=== PATIENT | female | born 1945 | race Hispanic/Latino ===

== ENCOUNTER 2019-06-27 08:34 | Emergency (ER) | payer MEDICARE, OTHER ==
[~2019-06-27] VITALS: Ht 154.9 cm; Wt 73.9 kg
--- OUTSIDE RECORDS SUMMARY | 2019-06-27 08:37 | XMS REPORT | Clinical Summary ---
Author Author [facility] Organization [facility] Address Unknown Phone Unavailable Care Team Providers Care Medicaid Analyst Name Role Phone Stacy Lucero MD PCP Allergies Comments Active Allergy Reactions Severity Noted Date headaches Amlodipine 02/05/2019 Myalgias Rosuvastatin Other (See 01/13/2017 Comments) dysuria Fenofibrate 01/28/2019 Muscle pains Gemfibrozil 02/18/2019 Myalgias Atorvastatin Other (See 01/13/2017 Comments) Methylprednisolone 12/08/2017 Morphine Anaphylaxis High 04/11/2016 Burning eyes Nifedipine 02/18/2019 Medications End Date Status Medication Sig Dispensed Refills Start Date Active MICROLET LANCET misc CHEQUE MCNEAL 100 each 3 AZUCAR DOS 6 VECES AL VLADIMIR. Active cholecalciferol, vitamin Take 1 tablet 4 tablet 6 D3, 50,000 unit tablet (50,000 Units 8 total) by mouth once a week. Active mirabegron (MYRBETIQ) 50 Take 1 tablet 30 tablet 0 mg tablet extended (50 mg total) 8 release 24 hrIndications: by mouth Dysuria, Urinary urgency daily. Active olmesartan-hydrochlorothi TOME CLAIRE (1) 90 tablet 1 azide (BENICAR HCT) 40-25 TABLETA(S) 9 mg per tablet POR LA BOCA CLAIRE VEZ AL VLADIMIR. Active colesevelam (WELCHOL) 625 Take 3 180 tablet 5 mg tablet tablets 9 (1,875 mg total) by mouth 2 (two) times a day with meals. Active conjugated estrogens Apply a 30 g 1 (PREMARIN) 0.625 mg/gram blueberry 9 vaginal cream size amount to the external vagina 2x per week before bed Active metFORMIN XR TOME CLAIRE (1) 90 tablet 0 (GLUCOPHAGE-XR) 500 mg 24 TABLETA(S) 9 hr tabletIndications: POR LA BOCA Type 2 diabetes mellitus DIARIO CON without complication, DESAYUNO. without long-term current use of insulin ([facility]) 08/02/2019 Active ALPRAZolam (XANAX) 0.5 MG TOME CLAIRE (1) 30 tablet 0 tablet TABLETA(S) 9 POR LA BOCA CADA NOCHE GAVIOTA NECESARIO PARA ANSIEDAD. 07/26/2018 Discontinued (Reorder) olmesartan-hydrochlorothi Take 1 tablet 30 tablet 6 azide (BENICAR HCT) 40-25 by mouth 8 mg per tablet daily. 06/26/2018 Discontinued (Med List Cleanup) metFORMIN XR Take 500 mg 0 (GLUCOPHAGE-XR) 500 mg 24 by mouth hr tablet daily with breakfast. 09/29/2018 Discontinued (Reorder) metFORMIN XR TOME CLAIRE (1) 60 tablet 2 (GLUCOPHAGE-XR) 500 mg 24 TABLETA(S) 8 hr tabletIndications: POR LA BOCA Type 2 diabetes mellitus DIARIO CON EL without complication, DESAYUNO. without long-term current use of insulin ([facility]) 10/04/2018 Discontinued (Reorder) ALPRAZolam (XANAX) 0.5 MG Take 0.5 mg 0 tablet by mouth nightly as needed for anxiety. 01/28/2019 Discontinued (Side effects) fenofibrate micronized Take 1 30 capsule 6 (LOFIBRA) 134 MG capsule capsule (134 8 mg total) by mouth nightly. 07/30/2018 nitrofurantoin, Take 1 14 capsule 0 macrocrystal-monohydrate, capsule (100 8 (MACROBID) 100 MG mg total) by capsuleIndications: mouth 2 (two) Dysuria times a day for 7 days. 11/02/2018 Discontinued (Reorder) olmesartan-hydrochlorothi TOME CLAIRE (1) 30 tablet 6 azide (BENICAR HCT) 40-25 TABLETA(S) 8 mg per tablet POR LA BOCA DIARIO. 11/02/2018 Discontinued (Reorder) metFORMIN XR TOME CLAIRE (1) 30 tablet 2 12/03/201 (GLUCOPHAGE-XR) 500 mg 24 TABLETA(S) 8 hr tabletIndications: POR LA BOCA Type 2 diabetes mellitus DIARIO CON EL without complication, DESAYUNO. without long-term current use of insulin ([facility]) 10/14/2018 ciprofloxacin (CIPRO) 500 Take 1 tablet 28 tablet 0 MG tablet (500 mg 8 total) by mouth 2 (two) times a day for 14 days. 11/14/2018 Discontinued (Alternate therapy) amLODIPine (NORVASC) 5 mg Take 1 tablet 30 tablet 1 tabletIndications: (5 mg total) 8 Essential hypertension by mouth daily. 11/02/2018 Discontinued (Reorder) ALPRAZolam (XANAX) 0.5 MG TOME CLAIRE (1) 30 tablet 0 tablet TABLETA(S) 8 POR LA BOCA CLAIRE VEZ AL VLADIMIR GAVIOTA NECESARIO. 05/02/2019 Discontinued (Reorder) metFORMIN XR TOME CLAIRE (1) 90 tablet 0 (GLUCOPHAGE-XR) 500 mg 24 TABLETA(S) 9 hr tabletIndications: POR LA BOCA Type 2 diabetes mellitus DIARIO CON without complication, DESAYUNO. without long-term current use of insulin ([facility]) 01/25/2019 Discontinued (Reorder) olmesartan-hydrochlorothi TOME CLAIRE (1) 90 tablet 0 azide (BENICAR HCT) 40-25 TABLETA(S) 9 mg per tablet POR LA BOCA CLAIRE VEZ AL VLADIMIR. 11/14/2018 Discontinued (Alternate therapy) nebivolol (BYSTOLIC) 5 MG Take 1 tablet 30 tablet 1 tablet (5 mg total) 9 by mouth daily. 06/03/2019 Discontinued (Reorder) ALPRAZolam (XANAX) 0.5 MG Take 1 tablet 30 tablet 1 tablet (0.5 mg 9 total) by mouth nightly as needed for anxiety for up to 30 days. 12/21/2018 Discontinued (Reorder) bisoprolol (ZEBETA) 5 MG Take 1 tablet 30 tablet 1 tablet (5 mg total) 9 by mouth daily. 02/05/2019 Discontinued (Side effects) bisoprolol (ZEBETA) 5 MG Take 0.5 45 tablet 1 tabletIndications: tablets (2.5 9 Essential hypertension mg total) by mouth daily. 02/18/2019 Discontinued (Side effects) gemfibrozil (LOPID) 600 Take 1 tablet 180 tablet 1 MG tablet 30 minutes 9 before breakfast and dinner 02/18/2019 Discontinued (Side effects) NIFEdipine XL (PROCARDIA Take 1 tablet 30 tablet 1 XL) 30 MG 24 hr tablet (30 mg total) 9 by mouth nightly. Active Problems Problem Noted Date Spondylosis of lumbar region without myelopathy or radiculopathy 07/22/2016 Spondylosis, cervical 07/22/2016 Hypertension Hyperlipidemia Diabetes mellitus Overview: 5.0% A1C 6 months ago Cancer Overview: h/o bladder- had tumor removed- had regular f/u with for a while- none in 8-9 yrs Encounters Care Team Description Date Type Specialty Stacy Lucero MD 06/10/2019 Refill Family Medicine Stacy Lucero MD 06/05/2019 Refill Family Medicine Stacy Lucero MD 06/03/2019 Refill Family Medicine Stacy Lucero MD Type 2 diabetes mellitus without complication, without long-term current use of insulin ([facility]) 05/02/2019 Refill Internal Medicine Sudha Porter PA Gross hematuria (Primary Dx); Nocturia; Atrophic vaginitis; History of bladder cancer 02/25/2019 Office Visit Urology Stacy Lucero MD 02/14/2019 Telephone Internal Medicine Stacy Lucero MD 02/04/2019 Telephone Internal Medicine Stacy Lucero MD 01/28/2019 Orders Only Family Medicine Stacy Lucero MD Essential hypertension; Type 2 diabetes mellitus without complication, without long-term current use of insulin ([facility]); Mixed hyperlipidemia 01/25/2019 Lab Lab Stacy Lucero MD Type 2 diabetes mellitus without complication, without long-term current use of insulin ([facility]) 01/25/2019 Refill Internal Medicine Stacy Lucero MD 12/26/2018 Telephone Internal Medicine Stacy Lucero MD Essential hypertension (Primary Dx); Type 2 diabetes mellitus without complication, without long-term current use of insulin (HCC); Mixed hyperlipidemia 12/21/2018 Office Visit Family Stacy Rose MD 12/17/2018 Telephone Family Medicine Stacy Lucero MD 11/16/2018 Telephone Internal Medicine Stacy Lucero MD 11/13/2018 Telephone Internal Medicine Stacy Lucero MD Essential hypertension (Primary Dx) 11/02/2018 Office Visit Family Medicine Stacy Lucero MD Type 2 diabetes mellitus without complication, without long-term current use of insulin (HCC) 11/02/2018 Refill Internal Medicine Stacy Lucero MD Type 2 diabetes mellitus without complication, without long-term current use of insulin ([facility]) 11/01/2018 Refill Internal Medicine Stacy Lucero MD 10/26/2018 Refill Internal Medicine Stacy Lucero MD 10/12/2018 Refill Internal Medicine Allan Christine MD Gross hematuria 10/11/2018 Hospital Radiology Encounter Stacy Lucero MD Snoring (Primary Dx); Has daytime drowsiness 10/09/2018 Telephone Internal Medicine Allan Christine MD Gross hematuria (Primary Dx) 10/09/2018 Transcribe Access Orders Allan Christine MD Urinary tract infection without hematuria, site unspecified (Primary Dx); Urge incontinence; Gross hematuria; Personal history of malignant neoplasm of bladder 10/07/2018 Lab Lab Stacy Lucero MD 10/05/2018 Refill Family Medicine Stacy Lucero MD 10/04/2018 Refill Family Medicine Stacy Lucero MD Dysuria (Primary Dx); Urinary urgency; Personal history of bladder cancer; Essential hypertension 10/01/2018 Office Visit Family Medicine Yessica Mcnamara MD 10/01/2018 Telephone Urology Roxanne MckeonJerica Pizano MD Urinary tract infection with hematuria, site unspecified (Primary Dx); Gross hematuria 09/30/2018 Emergency Emergency Medicine Stacy Lucero MD Type 2 diabetes mellitus without complication, without long-term current use of insulin (HCC) 09/29/2018 Refill Family Medicine Stacy Lucero MD 09/11/2018 Telephone Family Medicine Stacy Lucero MD Urinary tract infection without hematuria, site unspecified 08/03/2018 Lab Stacy Webb MD Urinary tract infection without hematuria, site unspecified (Primary Dx) 08/01/2018 Telephone Family Stacy Rose MD 07/26/2018 Refill Family Medicine Stacy Lucero MD Dysuria (Primary Dx); Fatigue, unspecified type 07/23/2018 Office Visit Family Medicine Stacy Lucero MD 06/29/2018 Telephone Internal Medicine Stacy Lucero MD 06/27/2018 Orders Only Family Medicine Stacy Lucero MD Fatigue, unspecified type; Type 2 diabetes mellitus without complication, without long-term current use of insulin; Essential hypertension; Mixed hyperlipidemia; Vitamin D deficiency 06/26/2018 Lab Lab Stacy Lucero MD Annual visit for general adult medical examination with abnormal findings (Primary Dx); Colon cancer screening; Breast cancer screening; Age-related osteoporosis without current pathological fracture; Type 2 diabetes mellitus without complication, without long-term current use of insulin; Essential hypertension; Mixed hyperlipidemia; Fatigue, unspecified type; Primary insomnia; Vitamin D deficiency 06/26/2018 Office Visit Family Medicine after 06/26/2018 Immunizations Name Administration Dates Next Due FLUZONE HIGH-DOSE PF 07/15/2016 Pneumococcal Conjugate 07/15/2016 13-Valent Pneumococcal 10/30/2012 Polysaccharide Family History Medical History Relation Name Comments Cancer Father throat- heavy smoker Hypertension Mother Relation Name Status Comments Father Mother Alive Social History Date Tobacco Use Types Packs/Day Years Used Former Smoker Cigarettes 5 Smokeless Tobacco: Never Used Tobacco Cessation: Counseling Given: No Drinks/Week oz/Week Comments Alcohol Use No Sex Assigned at Date Recorded Not on file Industry Job Start Date Occupation Not on file Not on file Not on file Travel End Travel History Travel Start No recent travel history available. Last Filed Vital Signs Reading Time Taken Comments Vital Sign 144/73 02/25/2019 9:53 AM CDT Blood Pressure 66 02/25/2019 9:53 AM CDT Pulse 36.9 C (98.4 F) 12/21/2018 2:58 PM [facility]URSE [facility]ACTITIONER H[facility]PITALIST Temperature 17 09/30/2018 1:56 PM [facility]URSE PRACTITIONER H[facility]PITALIST Respiratory Rate 99% 12/21/2018 2:58 PM NURSE PRACTITIONER HOSPITALIST Oxygen Saturation - - Inhaled Oxygen Concentration 75.3 kg (166 lb) 02/25/2019 9:53 AM CDT Weight 154.9 cm (5' 1") 02/25/2019 9:53 AM CDT Height 31.37 02/25/2019 9:53 AM CDT Body Mass Index Plan of Treatment Care Team Description Date Type Specialty Stacy Lucero MD [address] [place] [address] [phone] 07/08/2019 Office Visit Family Medicine Health Maintenance Due Date Last Done Comments DIABETIC FOOT EXAM 1957 BREAST CANCER SCREENING 1997 SHINGLES VACCINES (#1) 1997 INFLUENZA VACCINE 05/30/2019 07/15/2016 DIABETIC RETINAL EYE EXAM 12/21/2020 12/21/2018, 12/20/2017, 03/20/2017, Additional history exists COLONOSCOPY SCREENING 10/30/2022 10/30/2012 65+ PNEUMOCOCCAL VACCINE Completed 07/15/2016, 10/30/2012 Procedures Comments Procedure Name Priority Date/Time Associated Diagnosis URINE CULTURE Routine 02/25/2019 Gross hematuria 10:40 AM CDT POC URINALYSIS DIPSTICK Routine 02/25/2019 Gross hematuria 9:50 AM CDT LIPID PANEL Routine 01/25/2019 Mixed hyperlipidemia 11:16 AM CDT HEMOGLOBIN A1C Routine 01/25/2019 Type 2 diabetes mellitus 11:16 AM CDT without complication, without long-term current use of insulin (HCC) BASIC METABOLIC PANEL Routine 01/25/2019 Essential hypertension 11:16 AM CDT Type 2 diabetes mellitus without complication, without long-term current use of insulin (HCC) DIABETIC RETINAL SCAN Routine 12/21/2018 Type 2 diabetes mellitus 3:36 PM NURSE PRACTITIONER HOSPITALIST without complication, without long-term current use of insulin (HCC) CT UROGRAM Routine 10/11/2018 Gross hematuria 3:37 PM NURSE PRACTITIONER HOSPITALIST ESTIMATED GFR Routine 10/05/2018 4:11 PM NURSE PRACTITIONER HOSPITALIST CREATININE LEVEL Routine 10/05/2018 Urinary tract infection 4:11 PM NURSE PRACTITIONER HOSPITALIST without hematuria, site unspecified Urge incontinence Gross hematuria Personal history of malignant neoplasm of bladder ESTIMATED GFR STAT 09/30/2018 11:25 AM NURSE PRACTITIONER HOSPITALIST COMPREHENSIVE METABOLIC STAT 09/30/2018 PANEL 11:25 AM NURSE PRACTITIONER HOSPITALIST URINALYSIS SCREEN AND STAT 09/30/2018 MICROSCOPY, WITH REFLEX 11:25 AM NURSE PRACTITIONER HOSPITALIST TO CULTURE PARTIAL THROMBOPLASTIN STAT 09/30/2018 TIME (PTT) 11:25 AM NURSE PRACTITIONER HOSPITALIST PROTHROMBIN TIME WITH INR STAT 09/30/2018 11:25 AM NURSE PRACTITIONER HOSPITALIST HC COMPLETE BLD COUNT STAT 09/30/2018 W/AUTO DIFF 11:25 AM NURSE PRACTITIONER HOSPITALIST GRAM STAIN STAT 09/30/2018 11:25 AM NURSE PRACTITIONER HOSPITALIST URINE CULTURE STAT 09/30/2018 11:25 AM NURSE PRACTITIONER HOSPITALIST MICROSCOPIC EXAMINATION Routine 08/03/2018 9:45 AM CDT URINALYSIS, AUTOMATED Routine 08/03/2018 WITH MICROSCOPY 9:45 AM CDT URINE CULTURE Routine 08/03/2018 Urinary tract infection 9:45 AM CDT without hematuria, site unspecified MICROSCOPIC EXAMINATION Routine 07/23/2018 2:43 PM CDT URINALYSIS, AUTOMATED Routine 07/23/2018 Dysuria WITH MICROSCOPY 2:43 PM CDT URINE CULTURE Routine 07/23/2018 2:43 PM CDT POC URINALYSIS DIPSTICK Routine 07/23/2018 Dysuria 2:41 PM CDT BONE DENSITY Routine 06/26/2018 Age-related osteoporosis 11:50 AM CDT without current pathological fracture MICROSCOPIC EXAMINATION Routine 06/26/2018 10:36 AM CDT THYROID STIMULATING Routine 06/26/2018 Fatigue, unspecified type HORMONE 10:36 AM CDT HEMOGLOBIN A1C Routine 06/26/2018 Type 2 diabetes mellitus 10:36 AM CDT without complication, without long-term current use of insulin VITAMIN D 25 HYDROXY Routine 06/26/2018 Vitamin D deficiency LEVEL 10:36 AM CDT URINALYSIS, AUTOMATED Routine 06/26/2018 Type 2 diabetes mellitus WITH MICROSCOPY 10:36 AM CDT without complication, without long-term current use of insulin LIPID PANEL Routine 06/26/2018 Mixed hyperlipidemia 10:36 AM CDT COMPREHENSIVE METABOLIC Routine 06/26/2018 Type 2 diabetes mellitus PANEL 10:36 AM CDT without complication, without long-term current use of insulin Essential hypertension Mixed hyperlipidemia CBC WITH PLATELET AND Routine 06/26/2018 Fatigue, unspecified type DIFFERENTIAL 10:36 AM CDT ECG 12-LEAD Routine 06/26/2018 Essential hypertension 9:02 AM CDT after 06/26/2018 Results * Urine culture (02/25/2019 10:40 AM CDT) Only the most recent of 4 results within the time period is included. Urine culture SEE NOTE [facility] Comment: DIAGNOSTICS CULTURE, URINE, ROUTINE [place] MICRO NUMBER:[id number] TEST STATUS: FINAL SPECIMEN SOURCE: URINE SPECIMEN QUALITY:ADEQUATE RESULT: Multiple organisms present, each less than 10,000 CFU/mL. These organisms, commonly found on external and internal genitalia, are considered to be colonizers. No further testing performed. Specimen Urine Resulting Agency Comment Performing Organization Information: Site ID: [id number] Name: [facility] Address: [address] [place] [phone] Director: Joyce Santizo Performing Organization Address City/State/Zipcode Phone Number [employer] [facility] [address] [place], [place] [id number] * POC urinalysis dipstick (02/25/2019 9:50 AM CDT) Only the most recent of 2 results within the time period is included. Pathologist [facility] Color urine, Yellow POC Clarity urine, Clear POC Glucose urine, Negative Negative POC Bilirubin Negative Negative urine, POC Ketones urine, Negative Negative POC Specific 1.025 1.005 - 1.030 gravity urine, POC Blood urine, Trace (A) Negative POC pH urine, POC 5.5 5.0, 5.5, 6.0, 6.5, 7.0, 7.5, 8.0, 8.5 Protein urine, Negative Negative POC Urobilinogen <2.0 <2.0 urine, POC Nitrite urine, Negative Negative POC Leukocyte Negative Negative esterase urine, POC Specimen Urine * Hemoglobin A1c (01/25/2019 11:16 AM CDT) Only the most recent of 2 results within the time period is included. [facility] Hemoglobin A1C 6.2 (H) <5.7 % of total Hgb [facility] Comment: DIAGNOSTICS For someone without known [place] diabetes, a hemoglobin A1c value between 5.7% and 6.4% is consistent with prediabetes and should be confirmed with a follow-up test. For someone with known diabetes, a value <7% indicates that their diabetes is well controlled. A1c targets should be individualized based on duration of diabetes, age, comorbid conditions, and other considerations. This assay result is consistent with an increased risk of diabetes. Currently, no consensus exists regarding use of hemoglobin A1c for diagnosis of diabetes for children. Specimen Blood Resulting Agency Comment Performing Organization Information: Site ID: [id number] Name: [facility] Address: [address] [place] [phone] Director: Joyce Santizo Performing Organization Address City/State/Zipcode Phone Number [employer] [address] [address] * Lipid panel (01/25/2019 11:16 AM CDT) Only the most recent of 2 results within the time period is included. [facility] Cholesterol, 197 <200 mg/dL [facility] [employer] [place] HDL cholesterol 40 (L) >50 mg/dL [facility] [employer] [place] Triglycerides 358 (H) <150 mg/dL [facility] [place] LDL cholesterol 109 (H) mg/dL (calc) [facility] calculated Comment: DIAGNOSTICS Reference range: <100 [place] [facility] Desirable range <100 mg/dL for primary prevention; <70 mg/dL for patients with CHD or diabetic patients with > or=2 CHD risk factors. LDL-C is now calculated using the Amy calculation, which is a validated novel method providing better accuracy than the Friedewald equation in the estimation of LDL-C. Julio THOMPSON et al. YECENIA. 2013;310(19): 9735-0084 (http://education.[employer]/faq/WGK170) Cholesterol/HDL 4.9 <5.0 (calc) [facility] [place] Non-HDL 157 (H) <130 mg/dL (calc) [facility] cholesterol Comment: DIAGNOSTICS For patients with diabetes [place] plus 1 major ASCVD risk factor, treating to a non-HDL-C goal of <100 mg/dL (LDL-C of <70 mg/dL) is considered a therapeutic option. Specimen Blood Resulting Agency Comment Performing Organization Information: Site ID: [id number] Name: [facility] Address: [address] [place] [phone] Director: Joyce Santizo Performing Organization Address City/State/Zipcode Phone Number [facility] [employer] [address] * Basic metabolic panel (01/25/2019 11:16 AM CDT) [facility] Glucose 107 (H) 65 - 99 mg/dL [facility] Comment: DIAGNOSTICS Fasting [place] reference interval For someone without known diabetes, a glucose value between 100 and 125 mg/dL is consistent with prediabetes and should be confirmed with a follow-up test. BUN, whole 21 7 - 25 mg/dL [facility] blood [facility] [place] Creatinine 0.75 0.60 - 0.93 mg/dL [facility] Comment: DIAGNOSTICS For patients >49 years of age, [place] the reference limit for Creatinine is approximately 13% higher for people identified as -Bhutanese. EGFR Non-Afr. 80 > OR=60 [facility] [place] mL/min/1.73m2 DIAGNOSTICS [place] EGFR 92 > OR=60 [facility] [place] mL/min/1.73m2 [facility] BUN/creatinine NOT APPLICABLE 6 - 22 (calc) [facility] [place] Sodium 138 135 - 146 mmol/L [facility] [place] Potassium 4.1 3.5 - 5.3 mmol/L [facility] [place] Chloride 104 98 - 110 mmol/L [facility] [place] CO2 27 20 - 32 mmol/L [facility] [place] Calcium 9.5 8.6 - 10.4 mg/dL [facility] [place] Specimen Blood Resulting Agency Comment Performing Organization Information: Site ID: [id number] Name: [facility] Address: [address] [place] [phone] Director: Joyce Santizo Performing Organization Address City/State/Zipcode Phone Number [employer] [place] [address] [place] [address] * Diabetic Retinal Scan (12/21/2018 3:36 PM NURSE PRACTITIONER HOSPITALIST) Highest NORMAL [facility] observation value Right eye None [facility] diabetic retinopathy Iris right eye None [facility] macular edema Right eye other None [facility] retinopathy Right eye image Gradable Image [facility] quality Left eye None [facility] diabetic retinopathy Left eye None [facility] macular edema Left eye other None [facility] retinopathy Left eye image Gradable Image [facility] quality Specimen Narrative Performed At Retinal Study Result for MICHAEL ANNIE H IRIS ANNIE RODRIGUEZ a 73 y/o, F (: 1945, ) presented to [facility] on 12-21-2018 for a retinal imaging study of the left and right eyes. Based on the findings of the study, the following is recommended for ANNIE RODRIGUEZ No Visible Diabetic Retinopathy, Macular Edema or Other Condition: Please advise the patient to return for another dilated fundus exam in 12 months or the next calendar year. Interpreting Provider's Comments:No comments provided Right Eye Findings: Normal Result.Negative for Diabetic Retinopathy. Left Eye Findings: Normal Result.Negative for Diabetic Retinopathy. This result was electronically signed by Mateusz Lindquist MD, , Taxonomy: [id number] on 12-21-2018 09:56:50 [facility] time. NOTE:Any pathology noted on this diabetic retinal evaluation should be confirmed by an appropriate ophthalmic examination. Procedure Note Hm Interface, Ancillary Results Incoming - 12/21/2018 3:57 PM NURSE PRACTITIONER HOSPITALIST Retinal Study Result for ANNIE RODRIGUEZ MARIA, a 73 y/o, F (: 1945, ) presented to [facility] on 12-21-2018 for a retinal imaging study of the left and right eyes. Based on the findings of the study, the following is recommended for ANNIE RODRIGUEZ No Visible Diabetic Retinopathy, Macular Edema or Other Condition: Please advise the patient to return for another dilated fundus exam in 12 months or the next calendar year. Interpreting Provider's Comments: No comments provided Right Eye Findings: Normal Result. Negative for Diabetic Retinopathy. Left Eye Findings: Normal Result. Negative for Diabetic Retinopathy. This result was electronically signed by Mateusz Lindquist MD, , Taxonomy: [id number] on 12-21-2018 09:56:50 [facility] time. NOTE: Any pathology noted on this diabetic retinal evaluation should be confirmed by an appropriate ophthalmic examination. Performing Organization Address City/State/Zipcode Phone Number [facility] [address] [place] [address] * CT Urogram (10/11/2018 3:37 PM NURSE PRACTITIONER HOSPITALIST) Specimen Narrative Performed At EXAMINATION:CT UROGRAM RADIANT CLINICAL HISTORY:R31.0 Gross hematuria, GROSS HEMATURIA R31.0 TECHNIQUE:CT of the abdomen and pelvis was performed without contrast utilizing renal stone protocol. Subsequently, postcontrast CT of the abdomen and pelvis was obtained with multiphase renal mass and CT urogram protocol. CT images were obtained using low-dose technique with automated exposure control.Sagittal and coronal computerized reformatted images were also obtained. COMPARISON:None. IMPRESSION: 1.There are no renal, ureteral or bladder calculi. Postcontrast, there is normal symmetric enhancement of the kidneys. There is a 1.1 cm cyst in the upper pole of the right kidney and 0.8 cm cyst in the lower pole of the right kidney. There is no suspicious renal mass. Both collecting system and opacified portions of the ureters are within normal limits. There is low insertion of the left ureter. No bladder mass or wall thickening noted. 2.There is moderate diffuse fatty infiltration of the liver. Spleen, pancreas, gallbladder, adrenal glands are unremarkable. 3.Aorta is atherosclerotic. There is no abdominal or pelvic adenopathy. There is no ascites. 4.There is a small hiatal hernia. There is no intestinal obstruction. There are several diverticula in the sigmoid colon. There is no evidence of diverticulitis. 5.Status post hysterectomy. There are no adnexal masses. 6.Bones are demineralized with degenerative changes in the spine. Lung bases are clear. Summary: No CT evidence of renal stone disease or urothelial neoplasm. [facility]-[id number] Procedure Note Hm Interface, Radiology Results Incoming - 10/11/2018 8:09 PM NURSE PRACTITIONER HOSPITALIST EXAMINATION: CT UROGRAM CLINICAL HISTORY: R31.0 Gross hematuria, GROSS HEMATURIA R31.0 TECHNIQUE: CT of the abdomen and pelvis was performed without contrast utilizing renal stone protocol. Subsequently, postcontrast CT of the abdomen and pelvis was obtained with multiphase renal mass and CT urogram protocol. CT images were obtained using low-dose technique with automated exposure control. Sagittal and coronal computerized reformatted images were also obtained. COMPARISON: None. IMPRESSION: 1. There are no renal, ureteral or bladder calculi. Postcontrast, there is normal symmetric enhancement of the kidneys. There is a 1.1 cm cyst in the upper pole of the right kidney and 0.8 cm cyst in the lower pole of the right kidney. There is no suspicious renal mass. Both collecting system and opacified portions of the ureters are within normal limits. There is low insertion of the left ureter. No bladder mass or wall thickening noted. 2. There is moderate diffuse fatty infiltration of the liver. Spleen, pancreas, gallbladder, adrenal glands are unremarkable. 3. Aorta is atherosclerotic. There is no abdominal or pelvic adenopathy. There is no ascites. 4. There is a small hiatal hernia. There is no intestinal obstruction. There are several diverticula in the sigmoid colon. There is no evidence of diverticulitis. 5. Status post hysterectomy. There are no adnexal masses. 6. Bones are demineralized with degenerative changes in the spine. Lung bases are clear. Summary: No CT evidence of renal stone disease or urothelial neoplasm. [facility]-[id number] Performing Organization Address City/State/Zipcode Phone Number [facility] [address] [place] [address] * Estimated GFR (10/05/2018 4:11 PM NURSE PRACTITIONER HOSPITALIST) Only the most recent of 2 results within the time period is included. Estimated GFR 69 mL/min/1.73 m2 [facility] Comment: [facility] rpretation G1 >=90 Normal or high G2 60-89Mildly decreased G1k98-93 Mildly to moderately decreased N4w84-22 Moderately to severely decreased G4 15-29Severely decreased G5 <15Kidney failure The eGFR was calculated using the Chronic Kidney Disease Epidemiology Collaboration (CKD-EPI) equation. Interpretation is based on recommendations of the National Kidney Foundation-Kidney Disease Outcomes Quality Initiative (NKF-KDOQI) published in 2014. Specimen Plasma specimen Performing Organization Address City/State/Zipcode Phone Number [facility] DEPARTMENT OF [address] [place] [address] PATHOLOGY AND GENOMIC MEDICINE [address] * Creatinine level (10/05/2018 4:11 PM NURSE PRACTITIONER HOSPITALIST) Creatinine 0.85 0.50 - 0.90 mg/dL [facility] Specimen Plasma specimen Performing Organization Address City/[facility] Phone Number [facility] [place] [address] PATHOLOGY AND GENOMIC MEDICINE [address] * Urinalysis screen and microscopy, with reflex to culture (09/30/2018 11:25 AM NURSE PRACTITIONER HOSPITALIST) Specimen site Clean catch [facility] Color, UA Straw [facility] Appearance, UA Clear [facility] Specific 1.004 1.001 - 1.035 [facility] gravity, [facility] pH, UA 6.0 5.0 - 8.5 [facility] Protein, UA Negative Negative [facility] Glucose, UA Negative Negative [facility] Ketones, UA Negative Negative [facility] Bilirubin, UA Negative Negative [facility] Blood, UA Large (A) Negative [facility] Nitrite, UA Negative Negative [facility] Urobilinogen, <2.0 <2.0 [facility] Leukocyte Large (A) Negative [facility] esterase, [facility] Epithelial <1 /HPF [facility] cells, [facility] WBC, UA 68 (H) 0 - 4 /HPF [facility] RBC, UA 3 0 - 5 /HPF [facility] Bacteria, UA Few None seen [facility] WBC clumps, UA Few (A) [facility] Yeast, UA None seen [facility] Yeast with None seen [facility] Specimen Urine Performing Organization Address City/State/Zipcode Phone Number [facility] DEPARTMENT OF [address] [place] [address] PATHOLOGY AND [facility] MEDICINE [address] * Partial thromboplastin time, activated (09/30/2018 11:25 AM NURSE PRACTITIONER HOSPITALIST) Pathologist [facility] PTT 35.5 23.0 - 36.0 sec [facility] Comment: [facility] PTT therapeutic range for HOSPITAL unfractionated heparin is 61.0-112.0 seconds which corresponds to Anti-Xa 0.3-0.7 U/ml. Specimen Blood Performing Organization Address City/[facility]/Zipcode Phone Number [facility] [place] [address] PATHOLOGY AND [facility] MEDICINE [address] * Prothrombin time with INR (09/30/2018 11:25 AM NURSE PRACTITIONER HOSPITALIST) Pathologist [facility] Prothrombin 12.7 11.5 - 14.5 sec [facility] INR 1.0 [facility] Comment: [facility] The International Normalized HOSPITAL Ratio (INR) is a therapeutic monitoring tool for patients who are stable on oral anticoagulant therapy. An INR of 2.0-3.0 is suggested for deep vein thrombosis/pulmonary embolism. Specimen Blood Performing Organization Address City/[facility] Phone Number [facility] [place] [address] PATHOLOGY AND [facility] MEDICINE [address] * Gram stain (09/30/2018 11:25 AM NURSE PRACTITIONER HOSPITALIST) Pathologist [facility] Gram stain Occasional WBC's [facility] result No organisms seen [facility] Comment: HOSPITAL Specimen Information Specimen Source: Urine Specimen Site: Clean catch Specimen Urine Performing Organization Address City/[facility]/Zipcode Phone Number [facility] DEPARTMENT OF [address] [place] [address] PATHOLOGY AND [facility] MEDICINE [address] * CBC with platelet and differential (09/30/2018 11:25 AM NURSE PRACTITIONER HOSPITALIST) Only the most recent of 2 results within the time period is included. Pathologist [facility] WBC 7.37 4.50 - 11.00 k/uL [facility] RBC 4.11 (L) 4.20 - 5.50 m/uL [facility] HGB 12.3 12.0 - 16.0 g/dL [facility] HCT 37.3 37.0 - 47.0 % [facility] MCV 90.8 82.0 - 100.0 fL [facility] MCH 29.9 27.0 - 34.0 pg [facility] MCHC 33.0 31.0 - 37.0 g/dL [facility] RDW - SD 41.1 37.0 - 55.0 fL [facility] MPV 11.3 8.8 - 13.2 fL [facility] Platelet count 234 150 - 400 k/uL [facility] Nucleated RBC 0.00 /100 WBC [facility] Neutrophils 63.4 39.0 - 69.0 % [facility] Lymphocytes 26.2 25.0 - 45.0 % [facility] Monocytes 6.6 0.0 - 10.0 % [facility] Eosinophils 2.8 0.0 - 5.0 % [facility] Basophils 0.7 0.0 - 1.0 % [facility] Immature 0.3Comment: "Immature 0.0 - 1.0 % [facility] granulocytes granulocytes" (promyelocytes, [facility] myelocytes, metamyelocytes) [facility] Specimen Blood Performing Organization Address City/State/Zipcode Phone Number [facility] DEPARTMENT OF [address] [place] [address] PATHOLOGY AND GENOMIC MEDICINE [address] * Comprehensive metabolic panel (09/30/2018 11:25 AM NURSE PRACTITIONER HOSPITALIST) Only the most recent of 2 results within the time period is included. Sodium 141 135 - 148 mEq/L [facility] Potassium 3.9 3.5 - 5.0 mEq/L [facility] Chloride 103 98 - 112 mEq/L [facility] CO2 24 24 - 31 mEq/L [facility] Anion gap 14@ANIO 7 - 15 mEq/L [facility] BUN 22 8 - 23 mg/dL [facility] Creatinine 0.92 (H) 0.50 - 0.90 mg/dL [facility] Glucose 113 (H) 65 - 99 mg/dL [facility] Calcium 10.2 8.8 - 10.2 mg/dL [facility] Protein 8.2 6.3 - 8.3 g/dL [facility] Comment: [facility] 4.6-7.0 g/dL 1 week 4.4-7.6 g/dL 7 months-1year 5.1-7.3 g/dL 1-2 years5.6-7 .5 g/dL >3 years6.0-8 .0 g/dL 18-150 6.3-8.3 g/dL Albumin 4.3 3.5 - 5.0 g/dL [facility] A/G ratio 1.1 0.7 - 3.8 [facility] Alkaline 61 35 - 104 U/L [facility] phosphatase [facility] AST 35 10 - 35 U/L [facility] ALT 32 5 - 50 U/L [facility] Total bilirubin 0.3 0.0 - 1.2 mg/dL [facility] Specimen Plasma specimen Performing Organization Address City/[facility] Phone Number [facility] DEPARTMENT OF [address] [place] [address] PATHOLOGY AND GENOMIC MEDICINE [address] * Microscopic Examination (08/03/2018 9:45 AM CDT) Only the most recent of 3 results within the time period is included. [facility] WBC, UA 0-5 0 - 5 /hpf [facility] RBC, UA 0-2 0 - 2 /hpf [facility] Epithelial 0-10 0 - 10 /hpf [facility] cells (non renal) Mucus, UA Present Not Estab. [facility] Bacteria, UA Few None seen/Few [facility] Specimen Narrative Performed At Performed at: [id number] Avionics Engineer: Matt Perkins MD, Phone:[phone] Performing Organization Address City/State/Zipcode Phone Number [facility] * Urinalysis, automated with microscopy (08/03/2018 9:45 AM CDT) Only the most recent of 3 results within the time period is included. Pathologist [facility] Specific 1.022 1.005 - 1.030 [facility] gravity, urine pH, urine 7.0 5.0 - 7.5 [facility] Color, UA Yellow Yellow [facility] Appearance Clear Clear [facility] WBC esterase, Negative Negative [facility] urine Protein, UA Negative Negative/Trace [facility] Glucose, urine Negative Negative [facility] Ketones, UA Negative Negative [facility] Occult blood, Negative Negative [facility] urine Bilirubin, UA Negative Negative [facility] Urobilinogen, 0.2 0.2 - 1.0 mg/dL [facility] UA Nitrite, UA Negative Negative [facility] Microscopic CommentComment: Microscopic [facility] examination follows if indicated. Microscopic See below:Comment: Microscopic [facility] examination was indicated and was performed. Specimen Narrative Performed At Performed at: [facility] [address] [facility], [id number] Avionics Engineer: Matt Perkins MD, Phone:[phone] Performing Organization Address City/State/Zipcode Phone Number [facility] * Bone Density (06/26/2018 11:50 AM CDT) Specimen Narrative Performed At EXAMINATION:BONE DENSITY RADIANT CLINICAL HISTORY:M81.0 Age-related osteoporosis without current pathological fracture, Osteoporosis.Osteoporosis screening. COMPARISON:None. The results of this study expressed as bone mineral density (BMD) were as follows: AP spine (L1- L4) BMD: 0.901g/cm2 T-Score: -2.4 Percent Change:not applicable Dual Femur (Total Mean): BMD: 0.825g/cm2 T-Score: -1.5 Percent Change:not applicable Impression: Osteopenia lumbar spine and femurs [facility]-[id number] A copy of this scans including a report detailing these results will follow. Note: The world health organization (WHO) has classified the patient's T-score as follows: At or above (-1) as normal Between (-1) to (-2.5) as low (osteopenia) Below (-2.5) as abnormally low (osteoporosis, increased fracture risk) Dual femur FRAX: Risk factors: None. 10 year probability of fracture: 1.Major osteoporotic: 7.3 % 2.Hip: 1.6 % 3.Based on dual femur leftneck BMD Procedure Note Interface, Radiology Results Incoming - 06/26/2018 12:45 PM CDT EXAMINATION: BONE DENSITY CLINICAL HISTORY: M81.0 Age-related osteoporosis without current pathological fracture, Osteoporosis. Osteoporosis screening. COMPARISON: None. The results of this study expressed as bone mineral density (BMD) were as follows: AP spine (L1- L4) BMD: 0.901 g/cm2 T-Score: -2.4 Percent Change: not applicable Dual Femur (Total Mean): BMD: 0.825 g/cm2 T-Score: -1.5 Percent Change: not applicable Impression: Osteopenia lumbar spine and femurs [facility]-[id number] A copy of this scans including a report detailing these results will follow. Note: The world health organization (WHO) has classified the patient's T-score as follows: At or above (-1) as normal Between (-1) to (-2.5) as low (osteopenia) Below (-2.5) as abnormally low (osteoporosis, increased fracture risk) Dual femur FRAX: Risk factors: None. 10 year probability of fracture: 1. Major osteoporotic: 7.3 % 2. Hip: 1.6 % 3. Based on dual femur left neck BMD Performing Organization Address City/[facility] Cent[facility] Phone Number [facility] [address] [place] [address] * Vitamin D 25 hydroxy level (06/26/2018 10:36 AM CDT) [facility] Vitamin D, 17.1 (L) 30.0 - 100.0 ng/mL [facility] 25-hydroxy Comment: Vitamin D deficiency has been defined by the [place] of [employer] and an Endocrine Society practice guideline as a level of serum 25-OH vitamin D less than 20 ng/mL (1,2). The Endocrine Society went on to further define vitamin D insufficiency as a level between 21 and 29 ng/mL (2). 1. IOM ([place] of [employer]). 2010. Dietary reference intakes for calcium and D. [place]: The National Academies Press. 2. Dee MF, Nilesh NC, Jasmine-Fam JIM, et al. Evaluation, treatment, and prevention of vitamin D deficiency: an Endocrine Society clinical practice guideline. JCEM. 2010; 96(7):1911-30. Specimen Blood Narrative Performed At [facility] Performed at: - [id number] Avionics Engineer: Matt Perkins MD, Phone:[phone] Performing Organization Address [facility] Cent[facility]out Phone Number [facility] * Thyroid stimulating hormone (06/26/2018 10:36 AM CDT) TSH 1.410 0.450 - 4.500 uIU/mL [facility] Specimen Blood Narrative Performed At [facility] Performed at:01 - [id number] Avionics Engineer: Matt Perkins MD, Phone:[phone] Performing Organization Address City/[facility] Centercode Phone Number [facility] * ECG 12 lead (06/26/2018 9:02 AM CDT) Ventricular 61 [facility] rate Atrial rate 61 [facility] MO interval 140 [facility] QRSD interval 68 [facility] QT interval 418 [facility] QTC interval 420 [facility] P axis 1 43 [facility] QRS axis 1 -12 [facility] T wave axis 11 [facility] EKG impression Normal sinus rhythm-Normal [facility] ECG-In automated comparison with ECG of 17-MAR-2017 07:49,-No significant change was found- Specimen Performing Organization Address [facility] Phone Number [facility] MUSE [address] [place] [address] after 06/26/2018 Insurance Type Payer Benefit Subscriber ID Effective Phone Address Plan / Dates Group Medicare MEDICARE MEDICARE xxxxxxxxxxx 2011-P [facility], PART A AND resent [place] Commercial [employer] [place] xxxxxxxxxx 2012-P [place] [employer] [place] Advance Directives For more information, please contact: [phone] Patient Solar Designer/Installer Explanation Type Date Recorded Advance Directives, Living Will and Medical Power of Pooling Operator
[2019-06-27] MEDS ORDERED: MACROBID 100 M100 MG PO (09:33)
[2019-06-27] MEDS ORDERED: PYRIDIUM100 MG PO (09:33)
== END 2019-06-27 09:40 | disposition home or self-care (01) ==
LOC: FSED 08:34
DX: N39.0 Urinary tract infection, site not specified (principal); I10 Essential (primary) hypertension; E11.9 Type 2 diabetes mellitus without complications; E78.5 Hyperlipidemia, unspecified; F41.9 Anxiety disorder, unspecified; Z85.51 Personal history of malignant neoplasm of bladder
CPT/HCPCS: 81003; 99283

== ENCOUNTER 2020-11-27 14:08 | Emergency (ER) | payer MEDICARE, OTHER ==
[~2020-11-27] VITALS: Ht 154.9 cm; Wt 73.5 kg
[~2020-11-27 14:08] MED LIST: BACTRIM DS TAB1 EACH PO; MACROBID 100 M100 MG PO; PYRIDIUM100 MG PO
[2020-11-27] MEDS ORDERED: CEFTRIAXONE SOD 1 GM VIAL IV ONE (15:45)
[2020-11-27] MEDS ORDERED: CEFTRIAXONE SOD 1 GM/NS 50 ML 50 ML IV ONE (16:00)
[2020-11-27] MEDS ORDERED: CEFDINIR300 MG PO (16:06)
[2020-11-27] MEDS ORDERED: PYRIDIUM100 MG PO (16:06)
[2020-11-27 16:23] VITALS: BP 148/71
[2020-11-27] MEDS ORDERED: CEFTRIAXONE SOD 1 GM VIAL ONE (16:24)
[2020-11-27] MEDS ORDERED: CEFTRIAXONE SOD 1 GM VIAL IM ONE (16:30)
== END 2020-11-27 16:34 | disposition home or self-care (01) ==
LOC: FSED 14:40
DX: N30.00 Acute cystitis without hematuria (principal)
CPT/HCPCS: 74176; 80053; 81003; 85025; 87086; 99283; J0696

== ENCOUNTER 2021-04-08 06:41 | Emergency (ER) | payer MEDICARE, OTHER ==
[~2021-04-08] VITALS: Ht 154.9 cm; Wt 72.6 kg
[~2021-04-08 06:41] MED LIST changes: +CEFDINIR300 MG PO
[2021-04-08] MEDS ORDERED: ALPRAZOLAM0.5 MG PO (07:19)
[2021-04-08] MEDS ORDERED: METFORMIN HCL500 MG PO (07:19)
[2021-04-08] MEDS ORDERED: BENICAR HCT 401 EAC1 (07:19)
[2021-04-08] MEDS ORDERED: ZETIA10 MG PO (07:19)
[2021-04-08] MEDS ORDERED: FAMOTIDINE 20 MG/2 ML VIAL IV STA (07:38)
[2021-04-08] MEDS ORDERED: SODIUM CHLORIDE 0.9% 1000ML 1,000 ML IV SCH (07:45)
[2021-04-08] MEDS ORDERED: IOPAMIDOL 370 MG/ML 200 ML INFUS..BTL INJ ONE (07:55)
[2021-04-08] MEDS ORDERED: SODIUM CHLORIDE 0.9% 50ML 50 ML ONE (07:55)
[2021-04-08] MEDS ORDERED: SODIUM CHLORIDE 0.9% 1000ML 1,000 ML ONE (08:23)
[2021-04-08] MEDS ORDERED: FAMOTIDINE 20 MG/2 ML VIAL IV ONE (08:23)
[2021-04-08] MEDS ORDERED: KETOROLAC TROMETHAMINE 30 MG/ML VIAL IV STA (09:24)
[2021-04-08] MEDS ORDERED: DICYCLOMINE HCL20 MG PO (10:22)
[2021-04-08] MEDS ORDERED: FAMOTIDINE40 MG PO (10:23)
== END 2021-04-08 10:30 | disposition home or self-care (01) ==
LOC: FSED 07:25
DX: R10.13 Epigastric pain (principal); R19.7 Diarrhea, unspecified; K21.9 Gastro-esophageal reflux disease without esophagitis; E11.65 Type 2 diabetes mellitus with hyperglycemia; I10 Essential (primary) hypertension; E78.5 Hyperlipidemia, unspecified; Z20.822 Contact with and (suspected) exposure to COVID-19
CPT/HCPCS: 74177; 80053; 81003; 85025; 96374; 96375; 99284; J1885; J7030; Q9967; U0002

== ENCOUNTER 2023-02-07 05:46 | Emergency (ER) | payer MEDICARE, OTHER ==
[~2023-02-07] VITALS: Ht 154.9 cm; Wt 64.9 kg
[~2023-02-07 05:46] MED LIST changes: +ALPRAZOLAM0.5 MG PO; +BENICAR HCT 401 EAC1; +DICYCLOMINE HCL20 MG PO; +FAMOTIDINE40 MG PO; +METFORMIN HCL500 MG PO; +ZETIA10 MG PO
[2023-02-07] MEDS ORDERED: ONDANSETRON HCL INJ 2MG/ML 2ML 2 MG/ML VIAL IV STA (06:16)
[2023-02-07] MEDS ORDERED: ONDANSETRON HCL INJ 2MG/ML 2ML 2 MG/ML VIAL ONE (06:23)
[2023-02-07] MEDS ORDERED: MAGNESIUM/ALUMINUM/SIMETHICONE 30 ML UDC ONE (06:23)
[2023-02-07] MEDS ORDERED: MAGNESIUM/ALUMINUM/SIMETHICONE 30 ML UDC PO ONE (06:30)
[2023-02-07] MEDS ORDERED: KETOROLAC TROMETHAMINE 30 MG/ML VIAL IV STA ×2 (07:07→09:16)
[2023-02-07] MEDS ORDERED: KETOROLAC TROMETHAMINE 30 MG/ML VIAL ONE (07:28)
[2023-02-07] MEDS ORDERED: IOPAMIDOL 370 MG/ML 100 ML INFUS..BTL INJ ONE (09:08)
[2023-02-07] MEDS ORDERED: FAMOTIDINE 20 MG/2 ML VIAL IV STA (09:16)
[2023-02-07] MEDS ORDERED: PANTOPRAZOLE SO40 MG PO (10:17)
[2023-02-07 10:31] VITALS: BP 183/74
== END 2023-02-07 10:36 | disposition home or self-care (01) ==
LOC: FSED 06:05
DX: R10.13 Epigastric pain (principal); E11.65 Type 2 diabetes mellitus with hyperglycemia; R11.0 Nausea; I10 Essential (primary) hypertension; E78.5 Hyperlipidemia, unspecified; F41.9 Anxiety disorder, unspecified; Z85.51 Personal history of malignant neoplasm of bladder
CPT/HCPCS: 74177; 76705; 80048; 80076; 84484; 85025; 93005; 99284; J1885; J2405; Q9967